=== PATIENT | female | born 1945 | race Caucasian/White ===

== ENCOUNTER 2024-09-17 17:12 | Inpatient (IN) | payer MEDICARE ==
[~2024-09-17] VITALS: Ht 172.7 cm; Wt 68.0 kg
[2024-09-17 18:02] LABS: BASOPHILS ABSOLUTE AUTO 0.05 K/mm3 (0.00-0.23); BASOPHILS PERCENT AUTO 0 % (0-2); EOSINOPHILS ABSOLUTE AUTO 0.08 K/mm3 (0.00-0.68); EOSINOPHILS PERCENT AUTO 1 % (0-6); Hematocrit 37.3 % (33.0-51.0); Hemoglobin 12.8 g/dL (11.5-16.0); IMMATURE GRAN ABSOLUTE AUTO 0.02 K/mm3 (0.00-0.10); IMMATURE GRAN PERCENT AUTO 0 % (0-1); LYMPHOCYTES ABSOLUTE AUTO 2.36 K/mm3 (0.84-5.20); LYMPHOCYTES PERCENT AUTO 21 % (21-46); MONOCYTES ABSOLUTE AUTO 1.08 K/mm3 (0.16-1.47); MONOCYTES PERCENT AUTO 10 % (4-13); Mean Corpuscular HGB Conc 34.3 g/dL (31.5-36.5); Mean Corpuscular Volume 90 fL (80-100); Mean Platelet Volume 8.7 fL (9.1-12.4); NEUTROPHILS ABSOLUTE AUTO 7.68 K/mm3 (1.96-9.15); NEUTROPHILS PERCENT AUTO 68 % (41-73); Platelet Count 321 K/mm3 (150-400); RDW Coefficient Variation 12.4 % (11.7-14.2); RDW Standard Deviation 40.8 fL (35.1-46.3); Red Blood Cell Count 4.13 M/mm3 (3.80-5.20); White Blood Cell Count 11.27 K/mm3 (4.00-11.30)
[2024-09-17] MEDS ORDERED: Diazepam 5 MG Tab PO ONE (18:20)
[2024-09-17 18:24] LABS: Ethanol (Alcohol), Blood, Med <3 mg/dL
[2024-09-17 18:32] LABS: Alanine Aminotransfer (ALT/SGP 17 U/L (12-78); Albumin, Blood 3.5 g/dL (3.4-5.0); Albumin/Globulin Ratio 1.2 (0.8-1.8); Alk Phos 65 U/L (50-136); Anion Gap 11 mmol/L (3-11); Aspartate Aminotrans (AST/SGOT 22 U/L (12-37); Bilirubin, Total 0.5 mg/dL (0.1-1.0); Blood Urea Nitrogen 23 mg/dL (8-24); Bun/Creatinine Ratio 16.1 (12.0-20.0); CO2, Blood 25 mmol/L (21-32); Calcium, Blood 9.3 mg/dL (8.5-10.1); Chloride, Blood 102 mmol/L (98-108); Creatinine, Blood 1.43 mg/dL (0.40-1.00); Glomerular Filtration Rate 38 (60-); Glucose, Blood 94 mg/dL (70-99); Potassium, Blood 4.2 mmol/L (3.5-5.5); Sodium, Blood 134 mmol/L (136-145); Total Protein, Blood 6.5 g/dL (6.4-8.2)
[2024-09-17 18:49] LABS: Acetaminophen, Random <2.0 ug/mL (10.0-30.0); Free Thyroxine 1.32 ng/dL (0.70-1.60); Salicylate <1.7 mg/dL (2.8-20.0)
[2024-09-17 18:53] LABS: Source, Urine Clean Catch
[2024-09-17 18:59] LABS: Appearance, Urine Clear (Clear); Bilirubin, Urine Neg (Neg); Blood, Urine Neg (Neg); Color, Urine Yellow (P-Yellow); Glucose Qualitative, Urine Neg (Neg); Ketones, Urine 1+ (Neg); Leukocyte Esterase, Urine Neg (Neg); Nitrite, Urine Neg (Neg); Protein, Urine Neg (Neg); Urobilinogen, Urine NORM (Normal)
[2024-09-17 19:14] LABS: U Amphetamine Screen Not Detected; U Barbituate Screen Not Detected; U Benzodiazapine Screen Not Detected; U Buprenorphine Screen Not Detected; U Cannabinoids Screen Not Detected; U Cocaine Screen Not Detected; U Methadone Screen Not Detected; U Methamphetamine Screen Not Detected; U Opiates Screen Not Detected; U Oxycodone Screen Not Detected; U Phencyclidine Screen Not Detected
[2024-09-17 19:28] LABS: Influenza A, PCR NEGATIVE (NEGATIVE); Influenza B, PCR NEGATIVE (NEGATIVE); Resp Syncytial Virus, PCR NEGATIVE (NEGATIVE); SARS-Cov-2 (COVID-19) PCR, MMC NEGATIVE (NEGATIVE)
[2024-09-17] MEDS ORDERED: Acetaminophen 325 MG TABLET PO ONE ×2 (20:15→21:20)
[2024-09-17] MEDS ORDERED: Enoxaparin 40 MG/0.4 ML SYR SC SCH (22:00)
[2024-09-17] MEDS ORDERED: FLU VACC TS2024-25(6MOS UP)/PF 45 MCG/0.5 ML SYRINGE IM ONE (22:00)
[2024-09-17] MEDS ORDERED: FentaNYL Citrate 50 MCG/ML 2 ML Injection IV PRN (22:00)
[2024-09-17] MEDS ORDERED: NS 1,000 ML IV ONE (22:00)
[2024-09-17] MEDS ORDERED: LORazepam 2 MG/ML 1ML Injection IV ONE (22:00)
[2024-09-17] MEDS ORDERED: Ondansetron HCl 2 MG / ML 2ML Vial IV PRN (22:00)
[2024-09-17] MEDS ORDERED: Acetaminophen 325 MG TABLET PO PRN (22:00)
[2024-09-18 05:39] LABS: BASOPHILS ABSOLUTE AUTO 0.03 K/mm3 (0.00-0.23); BASOPHILS PERCENT AUTO 1 % (0-2); EOSINOPHILS ABSOLUTE AUTO 0.12 K/mm3 (0.00-0.68); EOSINOPHILS PERCENT AUTO 2 % (0-6); Hematocrit 34.1 % (33.0-51.0); Hemoglobin 11.5 g/dL (11.5-16.0); IMMATURE GRAN ABSOLUTE AUTO 0.01 K/mm3 (0.00-0.10); IMMATURE GRAN PERCENT AUTO 0 % (0-1); LYMPHOCYTES ABSOLUTE AUTO 2.06 K/mm3 (0.84-5.20); LYMPHOCYTES PERCENT AUTO 32 % (21-46); MONOCYTES ABSOLUTE AUTO 0.69 K/mm3 (0.16-1.47); MONOCYTES PERCENT AUTO 11 % (4-13); Mean Corpuscular HGB 30.4 pg (26.0-34.0); Mean Corpuscular HGB Conc 33.7 g/dL (31.5-36.5); Mean Corpuscular Volume 90 fL (80-100); Mean Platelet Volume 8.7 fL (9.1-12.4); NEUTROPHILS PERCENT AUTO 55 % (41-73); Platelet Count 257 K/mm3 (150-400); RDW Coefficient Variation 12.3 % (11.7-14.2); Red Blood Cell Count 3.78 M/mm3 (3.80-5.20); White Blood Cell Count 6.41 K/mm3 (4.00-11.30)
[2024-09-18 06:05] LABS: Albumin, Blood 3.1 g/dL (3.4-5.0); Albumin/Globulin Ratio 1.2 (0.8-1.8); Bilirubin, Total 0.5 mg/dL (0.1-1.0); Bun/Creatinine Ratio 26.4 (12.0-20.0); Calcium, Blood 9.4 mg/dL (8.5-10.1); Creatinine, Blood 0.79 mg/dL (0.40-1.00); Globulin, Blood 2.6 g/dL (2.2-4.0); Potassium, Blood 3.6 mmol/L (3.5-5.5); Total Protein, Blood 5.7 g/dL (6.4-8.2)
[2024-09-18 13:13] VITALS: BP 167/88
--- NOTE | 2024-09-18 15:50 | NUR ---
1300 PT ARRRIVED TO ROOM ASKED "WHERE AM i" ORIENTED PATIENT TO SURROUNDINGS. PT UNABLE TO TELL ME CHAIN OF EVENTS TO HOW SHE ARRIVED IN [facility]. PT TELLS ME SHE DROPPED HER DOG OFF FOR SHOTS IN [place]. CONTACTED NON EMERGENCY DISPATCH WHO TELLS ME THAT PATIENTS CAR IS SECURED AT [facility] IN [facility] AND THAT NO PETS ARE IN VEHICLE. PER OFFICER JESSIE PTS EX IN [facility] HAS DOGS. PTS FRIEND ARRIVED DURING ADMISSION PROCESS AND TELLS ME SHE HAS DRIVEN FROM [facility] TO TAKE PATIENT HOME. PER PATIENTS FRIEND PATIENT HAS NO CURRENT DRIVERS LICENSE AND HAS BEEN CONFUSED FOR SOME TIME
[2024-09-18 16:02] VITALS: BP 159/97
[2024-09-18] MEDS ORDERED: LORazepam 1 MG Tab PO PRN (17:40)
[2024-09-18] MEDS ORDERED: QUEtiapine Fumarate 50 MG TAB PO PRN (17:40)
--- NOTE | 2024-09-18 18:37 | NUR ---
PT ADMITTED TO FLOOR THIS AFT. SHE IS ANXIOUS AND FORGETFUL OF SHORT TERM INFORMATION. 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 WHO SHE MIGHT HAVE SEEN, OR ANYTHING ABOUT TRIP. BECOMES QUITE ANXIOUS WHEN QUESTIONED FURTHER. DISCUSSED AT LENGTH WITH DR TOURE. ATIVAN AND SEROQUEL HAVE BEEN ORDERED. PT FRIEND, CORKY STATES SHE HAS BECOME INCREASINGLY CONFUSED, LYUBOV IN EVENINGS, LATELY. CORKY HAS AGREED TO TAKE HER HOME, TO [place] TOMORROW. PT CR LOCATED AT [facility] IN [place], [place]. I SAW HER ODL AND IT IS IN APRIL 2024. FRIEND WILL COME SEE HER TOMORROW. NEW IV PLACED THIS LUISITO. BED IN LOW POSITION, CALL LITE IN REACH, INDEPENDANT IN ROOM.
[2024-09-18 19:22] VITALS: BP 171/86
[2024-09-19 04:21] VITALS: BP 148/106
--- NOTE | 2024-09-19 06:22 | NUR ---
SHIFT SUMMARY PT IS A&OX3, VERY FORGETFUL. PT IS ALSO IRRITABLE AND ANXIOUS. VSS ON RA. PER TELEMETRY PT IS SR @ 64 c 1ST DEGREE BLOCK AND BBB. C/O MENSAH. INDEPENDENT TO BR, CONTINENT OF BLADDER. TOLERATING A REGULAR DIET, CONSUMES A LOT OF WATER. AT 0430 TELE NOTIFIED THIS RN PT'S HR HIT 136 BPM, THEN QUICKLY STARTED TO COME DOWN. ACCORDING TO LAB, PT HAD JUST BEEN UP TO BR. PT IS ANXIOUS TO GO HOME TODAY. BED IN LOWEST POSITION, CALL LIGHT WITHIN REACH.
[2024-09-19 06:31] VITALS: BP 145/93
[2024-09-19 08:11] VITALS: BP 155/98
--- NOTE | 2024-09-19 09:54 | NUR ---
DR TOURE NOTIFIED OF PT GOING INTO [facility] EITH RVR WITH HR IN 140-170S PT DID CONVERT BACK TO SINUS WITH HR IN 80S. PROVIDER NOTED TO GO IN AND ASSESS PT WITH NO NEW ORDERS AT THIS TIME.
--- NOTE | 2024-09-19 10:00 | NUR ---
0940 PT WAS UP AMBULTING IN HER ROOM TO THE BATHROOM, THE TELE PLANER FEEDER CALLED AND REPORTED THAT THE PATIENT HAD CONVERTED TO A-FIB WITH RVR, HEART RATE 140-160'S FROM NSR AT 60'S. THE PT REPORTED NO C/P, SOB OR NAUSEA. DR. TOURE WAS NOTIFIED AND SEEN THE PT. WHILE HE WAS IN THE ROOM THE PT CONVERTED BACK TO SR IN THE 90'S PER MOLD PRESS OPERATOR
--- NOTE | 2024-09-19 11:43 | NUR ---
THIS NURSE CALLED AND SPOKE WITH PT FRIEND FARHAN. FARHAN STATED THAT SHE HAS CAME AND GOT PT CAR FROM [employer] AND TOOK IT BACK TO PT HOUSE. FARHAN ALSO STATED THAT SHE IS ON HER WAY BACK TO THE HOSPITAL IS ABOUT 1HR AND 30MIN AWAY. THIS NURSE ASKED FARHAN IF SHE NEW WHAT PHARMACY PT USES. FARHAN STATED SHE DID NOT KNOW.
--- NOTE | 2024-09-19 13:57 | NUR ---
SPOKE WITH DEV AT [facility] WHO IS GOING TO BE FAXING OVER PT LAST 6MONTHS OF MEDICATION.
[2024-09-19] MEDS ORDERED: OLANZapine 10 MG Vial IM PRN (15:05)
[2024-09-19 16:58] VITALS: BP 156/116
--- NOTE | 2024-09-19 17:20 | NUR ---
PROVIDER NOTIFIED D/T PT BP BEING 156/116 PROVIDER STATED HE WILL PUT IN AN ORDER.
[2024-09-19] MEDS ORDERED: DESV50 (17:22)
[2024-09-19] MEDS ORDERED: TRAZ100 PO (17:23)
[2024-09-19] MEDS ORDERED: FLUO10 (17:23)
--- NOTE | 2024-09-19 17:36 | NUR ---
SHIFT SUMMARY PT CONT LEVEL OF CARE. PT NOTED TO BE A&O TO SELF, PLACE, TIME, AND SITUATION THIS MORNING WHEN ASSESMENT WAS FIRST DONE. LATER THROUGHOUT THE DAY PT MENTATION STARTED TO CHANGE TO HER ONLY BEING A&O TO SELF AND PLACE. PT ALSO NOTED TO NOT BE ABLE TO ANSWER QUESTION APPROPRIATE THROUGHOUT THE DAY WITH CONFUSION NOTED. PT NOTED TO BE CONT OF BLADDER THIS SHIFT. AND INDEPENDENT IN ROOM.
[2024-09-19] MEDS ORDERED: HydrALAZINE HCl 20 MG / ML 1ML Vial IV PRN (18:20)
[2024-09-19 18:47] VITALS: BP 126/54
[2024-09-19] MEDS ORDERED: TraZODone HCl 100 MG Tab PO SCH ×2 (21:00)
[2024-09-19 21:54] VITALS: BP 150/82
[2024-09-20 03:28] VITALS: BP 148/89
--- NOTE | 2024-09-20 07:51 | NUR ---
SHIFT SUMMARY PT IS A&OX3, VERY FORGETFUL. PT IS ALSO IRRITABLE AND ANXIOUS. VSS, BP ELEVATED ON RA. PER TELEMETRY PT IS ST @ 100'S. WHEN SHE IS UP TO BR, OR BECOMES ANXIOUS, HER HR JUMPS TO THE 150'S-160'S. MD AWARE. DENIES PAIN THIS SHIFT. INDEPENDENT TO BR, CONTINENT OF BLADDER. TOLERATING A REGULAR DIET, CONSUMES A LOT OF WATER. BED IN LOWEST POSITION, CALL LIGHT WITHIN REACH.
[2024-09-20 08:13] VITALS: BP 143/79
--- NOTE | 2024-09-20 12:20 | NUR ---
NOTE: NOTIFIED BY TELE OF THE PT GOING INTO AFLUTTER, HR 140-160'S. ASSESSED THE PT, SHE DID NOT IDENTIFY ANY ABNORMAL SYMPTOMS THAT WERE EXPERIENCED OTHER THAN SHE IS ANXIOUS TO GO HOME. MEDICATED PER THE EMAR. NO NEW ORDERS AT THIS TIME. THE PROVIDER, DR. TOURE, WAS NOTIFIED.
[2024-09-20 15:16] VITALS: BP 132/73
--- NOTE | 2024-09-20 17:55 | NUR ---
SHIFT SUMMARY PT AOX3-4, SHORT TERM MEMORY DEFICITS. PT IS INDEPENDENT IN THE ROOM. CALLS OFTEN FOR FOOD AND DRINKS. MAKES HER NEEDS KNOWN. FRIEND AT THE BS TODAY, MADE AWARE OF THE CURRENT PLAN. REPOSITIONS SELF IN BED. SEE OTHER NOTE ABOUT TELE EVENT THIS SHIFT. NO COMPLAINTS BY PT OTHER THAN SHE IS "STARVING" AND REQUESTS FOOD OFTEN. CALL LIGHT WITHIN REACH, BED LOCKED AND IN THE LOWEST POSITION. WILL REPORT TO ONCOMING NURSE.
[2024-09-20 19:15] VITALS: BP 133/76
[2024-09-21 07:27] VITALS: BP 151/84
--- NOTE | 2024-09-21 07:31 | NUR ---
SHIFT SUMMARY PT IS A&OX3, FORGETFUL. PT IS ALSO IRRITABLE AND ANXIOUS. PT STATES TO THIS RN, SHE IS VERY STRESSED. REQUESTING HER TRAZODONE AT 1945. PRN 50 MG PO SEROQUEL ALSO GIVEN AT THIS TIME WITH GOOD EFFECT. VSS ON RA. PER TELEMETRY PT IS SR @ 81 WITH 1ST DEGREE BLOCK. DENIES PAIN THIS SHIFT. INDEPENDENT TO BR, CONTINENT OF BLADDER. TOLERATING A REGULAR DIET. BED IN LOWEST POSITION, CALL LIGHT WITHIN REACH.
[2024-09-21] MEDS ORDERED: Metoprolol Tartrate 25 MG Tab PO SCH (09:00)
--- NOTE | 2024-09-21 10:34 | NUR ---
NOTE: PROVIDER MADE AWARE THE AM MEDICATIONS HAVE NOT BEEN ADMINISTERED. PT REFUSES TO TAKE METOPROLOL UNTIL DISCUSSED WITH THE DOCTOR.
--- NOTE | 2024-09-21 15:49 | NUR ---
DISCHARGE NOTE PT DISCHARGED HOME TO [facility] WITH HOME [facility]ALTH. [facility] BY [facility]. THIS NURSE WAITED WITH THE PT FOR THE TAXI, IT ARRIVED AT 0345. THIS NURSE ASSISTED THE PT INTO THE TAXI. DISCHARGE INFORMATION PROVIDED AND REVIEWED WITH THE PT. IV REMOVED, TELE RETURNED. PERSONAL BELONGINGS RETURNED.
== END 2024-09-21 15:49 | disposition home health service (06) | DRG 92 ==
LOC: ER 17:12 → ERHOLD 17:13 → MEDS 17:13
PROVIDERS: Student in an Organized Health Care Education/Training Program; ADMIT Internal Medicine
DX: G92.8 Other toxic encephalopathy (principal); E87.1 Hypo-osmolality and hyponatremia; F03.94 Unspecified dementia, unspecified severity, with anxiety; N17.9 Acute kidney failure, unspecified; F03.93 Unspecified dementia, unspecified severity, with mood disturbance; R79.89 Other specified abnormal findings of blood chemistry; E86.0 Dehydration; R94.31 Abnormal electrocardiogram [ECG] [EKG]; I48.91 Unspecified atrial fibrillation; Z79.899 Other long term (current) drug therapy
CPT/HCPCS: 0241U; 36415; 70450; 80053; 80320; 81003; 83735; 84439; 84443; 84484; 85025; 93005; 93010; 93306; 96374; 97161; 97165; 99285-25; A9270; G0378; G0480; J0360; J2060